=== PATIENT | female | born 1965 | race Hispanic/Latino ===

== ENCOUNTER 2017-10-17 22:13 | Emergency (ER) | payer BC ==
--- NOTE | 2017-10-17 22:43 | ED PDOC ---
Arrival/HPI - General Chief Complaint: Trauma Time Seen by Provider: 10/17/17 22:43 Historian: Patient - History of Present Illness Narrative History of Present Illness (Text): 10/17/17 22:43 Cami Pradhan is a 51 year old female, with no significant past medical history, who presents to the Emergency department brought in by EMS for public intoxication. Patient was at restaurant [facility] and admits to drinking alcohol. As per EMS, patient fell off a bar stool and may have hit her head, but patient denies any head injury. Patient currently yelling that she wants to leave and go home. Patient denies any headache, dizziness, neck pain, back pain, or any other somatic complaints. Symptom Onset: Gradual Symptom Course: Unchanged Activities at Onset: Light Context: Other (Restaurant) Past Medical History - Provider Review Nursing Documentation Reviewed: Yes - Reproductive Menopause: Yes - Psychiatric Hx Substance Use: No - Surgical History Hx Appendectomy: Yes Hx Cholecystectomy: Yes - Anesthesia Hx Anesthesia: Yes Hx Anesthesia Reactions: No Hx Malignant Hyperthermia: No Family/Social History - Physician Review Nursing Documentation Reviewed: Yes Family/Social History: Unknown Family HX Smoking Status: Heavy Smoker > 10 Cigarettes Daily Hx Alcohol Use: Yes Frequency of alcohol use: Socially Hx Substance Use: No Allergies/Home Meds Allergies/Adverse Reactions: Allergies No Known Allergies Allergy (Verified 10/17/17 22:25) Home Medications: Home Meds Medication Instructions Recorded Confirmed No Known Home Med 10/17/17 10/17/17 Review of Systems - Physician Review All systems were reviewed & negative as marked: Yes - Review of Systems Constitutional: Normal. absent: Fevers Eyes: Normal ENT: Normal Respiratory: Normal. absent: SOB, Cough Cardiovascular: Normal. absent: Chest Pain Gastrointestinal: Normal. absent: Abdominal Pain, Diarrhea, Nausea, Vomiting Genitourinary Female: Normal. absent: Dysuria, Frequency, Hematuria, Urine Output Changes Musculoskeletal: Normal. absent: Back Pain, Neck Pain Skin: Normal. absent: Rash Neurological: Normal. absent: Headache, Dizziness Endocrine: Normal Hemo/Lymphatic: Normal Psychiatric: Other (+alcohol intoxication) Physical Exam Vital Signs Reviewed: Yes Vital Signs Temp Pulse Resp BP Pulse Ox 10/18/17 06:36 89 17 96 10/18/17 03:10 84 17 111/71 94 L 10/18/17 00:35 87 18 116/74 94 L 10/17/17 22:25 98.4 F 10/17/17 22:23 99 H 18 126/92 H 97 Temperature: Afebrile Blood Pressure: Normal Pulse: Regular Respiratory Rate: Normal Appearance: Positive for: Well-Appearing, Non-Toxic, Comfortable Pain Distress: None Mental Status: Positive for: Alert and Oriented X 3 - Systems Exam Head: Present: Atraumatic, Normocephalic Pupils: Present: PERRL Extroacular Muscles: Present: EOMI Conjunctiva: Present: Normal Mouth: Present: Moist Mucous Membranes Neck: Present: Normal Range of Motion. No: Meningeal Signs, MIDLINE TENDERNESS , Paraspinal Tenderness Respiratory/Chest: Present: Clear to Auscultation, Good Air Exchange. No: Respiratory Distress, Accessory Muscle Use Cardiovascular: Present: Regular Rate and Rhythm, Normal S1, S2. No: Murmurs Abdomen: No: Tenderness, Distention, Peritoneal Signs Back: Present: Normal Inspection Upper Extremity: Present: Normal Inspection. No: Cyanosis, Edema Lower Extremity: Present: Normal Inspection. No: Edema Neurological: Present: GCS=15, CN II-XII Intact, Speech Normal Skin: Present: Warm, Dry, Normal Color. No: Rashes Psychiatric: Present: Alert, Oriented x 3, Normal Insight, Normal Concentration Medical Decision Making ED Course and Treatment: 10/17/17 22:43 Impression: 51 year old female brought in for alcohol intoxication [employer]. Differential Diagnosis included but are not limited to: alcohol intoxication. Plan: -- Labs, alcohol level -- Reassess and disposition Progress Notes: 10/17/17 23:00 Pt belligerent, agitated, attempting to abscond for Emergency room. Pt yelling at staff. Alfred Arredondo called, pt sedated with Geodon and placed in restraints. 10/18/17 06:55 Case endorsed to attending /pending patient sobriety/reassess/final disposition - Lab Interpretations Lab Results: 10/17/17 23:51 10/17/17 23:51 Lab Results 10/17/17 23:51: WBC 3.8 L, RBC 4.23, Hgb 13.8, Hct 40.5, MCV 95.7, MCH 32.6, MCHC 34.1, RDW 14.1, Plt Count 114 L, MPV 9.0 10/17/17 23:51: Alcohol, Quantitative 463 H* 10/17/17 23:51: Sodium 151 H, Potassium 3.2 L, Chloride 108 H, Carbon Dioxide 24 , Anion Gap 23 H, BUN 10, Creatinine 0.6 L, Est GFR ( Amer) > 60, Est GFR (Non-Af Amer) > 60, Random Glucose 135 H, Calcium 8.6, Total Bilirubin 0.1 L , AST 61 H, ALT 46, Alkaline Phosphatase 65, Total Protein 7.5, Albumin 4.6, Globulin 2.9, Albumin/Globulin Ratio 1.6 - Medication Orders Current Medication Orders: Discontinued Medications Ziprasidone (Geodon Inj) 20 mg IM STAT STA PRN Reason: Protocol Stop: 10/17/17 23:00 Last Admin: 10/17/17 23:08 Dose: IM Administration Charges Document 10/17/17 23:08 MIGUELINA (Rec: 10/17/17 23:08 Anay [id number]) Charges for Administration # of IM Administrations 0 - Scribe Statement The provider has reviewed the documentation as recorded by the Sofia Odom Provider Scribe Attestation: All medical record entries made by the Scribe were at my direction and personally dictated by me. I have reviewed the chart and agree that the record accurately reflects my personal performance of the history, physical exam, medical decision making, and the department course for this patient. I have also personally directed, reviewed, and agree with the discharge instructions and disposition. Disposition/Present on Arrival - Present on Arrival Any Indicators Present on Arrival: No History of DVT/PE: No History of Uncontrolled Diabetes: No Urinary Catheter: No History of Decub. Ulcer: No History Surgical Site Infection Following: None - Disposition Have Diagnosis and Disposition been Completed?: No Diagnosis: Alcohol intoxication Disposition Time: 07:00 Condition: STABLE Referrals: [facility] [place], [Primary Care Provider] - Follow up with primary Forms: [employer] (Pashto)
[2017-10-18 00:14] LABS: HEMOGLOBIN 13.8 g/dL (12.0-16.0); MEAN CELL VOLUME 95.7 fl (80.0-105.0); MEAN CORPUSCULAR HEMOGLOBIN 32.6 pg (25.0-35.0); MEAN CORPUSCULAR HGB CONC 34.1 g/dl (31.0-37.0); RBC 4.23 10^6/uL (3.5-6.1); RED CELL DISTRIBUTION WIDTH 14.1 % (11.5-14.5); WHITE BLOOD COUNT 3.8 10^3/ul (4.5-11.0)
[2017-10-18 00:27] LABS: ALB/GLOB RATIO 1.6 (1.1-1.8); ALBUMIN 4.6 g/dL (3.0-4.8); ALT/SGPT 46 U/L (7-56); AST/SGOT 61 U/L (14-36); BLOOD UREA NITROGEN 10 mg/dL (7-21); CALCIUM 8.6 mg/dL (8.4-10.5); GFR AFRICAN-AMERICAN > 60; GFR NON-AFRICAN AMERICAN > 60
[2017-10-18] MEDS ORDERED: Potassium Chloride 20 mEq ER Tab PO STA (06:42)
[2017-10-18 08:23] VITALS: RESP 18; O2SAT 99
--- NOTE | 2017-10-18 08:28 | ED PDOC ---
Physical Exam Vital Signs Reviewed: Yes Vital Signs Temp Pulse Resp BP Pulse Ox 10/18/17 07:20 98 H 18 130/66 99 10/18/17 06:36 89 17 96 10/18/17 03:10 84 17 111/71 94 L 10/18/17 00:35 87 18 116/74 94 L 10/17/17 22:25 98.4 F 10/17/17 22:23 99 H 18 126/92 H 97 Temperature: Afebrile Blood Pressure: Hypertensive Pulse: Tachycardic Respiratory Rate: Normal Appearance: Positive for: Well-Appearing, Non-Toxic, Comfortable Pain Distress: None Mental Status: Positive for: Alert and Oriented X 3 - Systems Exam Head: Present: Contusion, Other (right sided parieto-occipital 2x3 hematoma, w/ no signs of depressed skull fracture nor basilar skull injury ) Pupils: Present: PERRL Extroacular Muscles: Present: EOMI Conjunctiva: Present: Normal Mouth: Present: Moist Mucous Membranes Neck: Present: Normal Range of Motion Respiratory/Chest: Present: Clear to Auscultation, Good Air Exchange. No: Respiratory Distress, Accessory Muscle Use Cardiovascular: Present: Regular Rate and Rhythm, Normal S1, S2. No: Murmurs Abdomen: No: Tenderness, Distention, Peritoneal Signs Back: Present: Normal Inspection Upper Extremity: Present: Normal Inspection. No: Cyanosis, Edema Lower Extremity: Present: Normal Inspection. No: Edema Neurological: Present: GCS=15, CN II-XII Intact, Speech Normal, Motor Func Grossly Intact, Normal Sensory Function, Normal Cerebellar Funct, Norm Deep Tendon Reflexes, Gait Normal, Memory Normal, Normal 2Pt Descrimination Skin: Present: Warm, Dry, Normal Color. No: Rashes Psychiatric: Present: Alert, Oriented x 3, Normal Insight, Normal Concentration Medical Decision Making ED Course and Treatment: 10/18/17 08:26 The patient is endorsed to me by Dr. Jones. The patient currently rouses to normal sensory and denies any SI/HI and depression corporeal complaints at this time, she currently is walking with stable gait. She states that she "just had a wild night," and would like to be discharged home. - Lab Interpretations Lab Results: 10/17/17 23:51 10/17/17 23:51 Lab Results 10/17/17 23:51: WBC 3.8 L, RBC 4.23, Hgb 13.8, Hct 40.5, MCV 95.7, MCH 32.6, MCHC 34.1, RDW 14.1, Plt Count 114 L, MPV 9.0 10/17/17 23:51: Alcohol, Quantitative 463 H* 10/17/17 23:51: Sodium 151 H, Potassium 3.2 L, Chloride 108 H, Carbon Dioxide 24 , Anion Gap 23 H, BUN 10, Creatinine 0.6 L, Est GFR ( Amer) > 60, Est GFR (Non-Af Amer) > 60, Random Glucose 135 H, Calcium 8.6, Total Bilirubin 0.1 L , AST 61 H, ALT 46, Alkaline Phosphatase 65, Total Protein 7.5, Albumin 4.6, Globulin 2.9, Albumin/Globulin Ratio 1.6 - Medication Orders Current Medication Orders: Discontinued Medications Potassium Chloride (K-Dur 20 Meq Er Tab) 40 meq PO STAT STA Stop: 10/18/17 06:43 Last Admin: 10/18/17 07:47 Dose: 40 meq Ziprasidone (Geodon Inj) 20 mg IM STAT STA PRN Reason: Protocol Stop: 10/17/17 23:00 Last Admin: 10/17/17 23:08 Dose: IM Administration Charges Document 10/17/17 23:08 Anay (Rec: 10/17/17 23:08 R [id number]) Charges for Administration # of IM Administrations 0 - Scribe Statement The provider has reviewed the documentation as recorded by the Sofia Love Provider Scribe Attestation: All medical record entries made by the Scribvineet were at my direction and personally dictated by me. I have reviewed the chart and agree that the record accurately reflects my personal performance of the history, physical exam, medical decision making, and the department course for this patient. I have also personally directed, reviewed, and agree with the discharge instructions and disposition. Disposition/Present on Arrival - Present on Arrival Any Indicators Present on Arrival: No History of DVT/PE: No History of Uncontrolled Diabetes: No Urinary Catheter: No History of Decub. Ulcer: No History Surgical Site Infection Following: None - Disposition Have Diagnosis and Disposition been Completed?: Yes Diagnosis: Alcohol intoxication Disposition: HOME/ ROUTINE Disposition Time: 09:10 Patient Plan: Discharge Condition: STABLE Print Language: GREEK Additional Instructions: Don't drink in such excess as it will ruin your health , reputation and your life. Referrals: [facility] [place] Recarmela, [Primary Care Provider] - Follow up with primary Forms: [employer] (Lao)
[2017-10-18 08:30] VITALS: BP 118/77; PULSE 96; TEMP 98.2
== END 2017-10-18 08:31 | disposition home or self-care (01) ==
LOC: ED 22:13
DX: F10.129 Alcohol abuse with intoxication, unspecified (principal); Y90.8 Blood alcohol level of 240 mg/100 ml or more
CPT/HCPCS: 80053; 85027; 99285; G0480; J3486